=== PATIENT | female | born 1970 | race Caucasian/White ===

== ENCOUNTER 2024-08-17 14:08 | Emergency (ER) | payer SELFPAY ==
[2024-08-17 14:20] VITALS: BP 186/103
--- NOTE | 2024-08-17 16:05 | ED.GENMED ---
History of Present Illness
General
Chief Complaint: Suicidal Ideation
Source: patient
Exam Limitations: none
Time Seen by Provider: 08/17/24 15:11
Nursing documentation reviewed up to this point in time: agreed with
History of Present Illness
History of Present Illness:
Patient is a 53-year-old female with past medical history of anxiety depression suicidal ideation in the past, autism (as per mother )who presents to the ER for evaluation. She had altercation with her boss at work and reports she felt very
hopeless and upset. She however denies suicidal ideation to me. She has no plan. She does report that all of my issues'' have been related to work. She reports she gets angry sometimes and does cut herself however she did not do that today and
did not attempt to hurt herself
Phy Exam
General Physical Exam
General Presentation: no apparent distress
General age: appears stated age
General Skin: warm and dry
General Habitus: normal
General Mental: alert
General Hydration: appears well hydrated
Cardiovascular Exam
Cardiovascular Exam: regular rate/rhythm, no murmur and normal peripheral pulses
Pulmonary Exam
Pulmonary Exam: lungs clear and no respiratory distress
Neurological Exam
Neurological Exam: alert and oriented x3
Musculoskeletal Exam
Musculoskeletal Exam: full ROM
Skin Exam
Skin Exam: normal color and warm/dry
Psychiatric Exam
Psychiatric Exam: normal mood/affect
Course
Orders/Labs/Results
Orders:
Orders
08/17/24 14:28
1:1 Observation - Suicide/ Violent Behavior As Directed
08/17/24 14:30
Crisis Consult Urgent
Reason for Consult: suicidal ideation
Vital Signs
Initial and Last Documented VS:
Initial Vital Signs
Temp Pulse Resp BP Pulse Ox
98 F 118 16 186/103 100
08/17/24 14:20 08/17/24 14:20 08/17/24 14:20 08/17/24 14:20 08/17/24 14:20
Last Documented Vital Signs
Temp Pulse Resp BP Pulse Ox
98 F 80 18 138/97 98
08/17/24 14:20 08/17/24 18:44 08/17/24 18:44 08/17/24 18:44 08/17/24 18:44
MDM/Problems Addressed
Differential Diagnosis Includes:
Not limited to anxiety depression suicidal ideation
MDM/Problems Addressed:
As documented patient is a 53-year-old female with history of anxiety, autism presents to the ER for evaluation. She had an altercation with her employer at work and became very upset. She denies stating any type of suicidal threat to me here in
the ER she does not feel suicidal. She reports she just felt down and hopeless because of having to leave her job recently. She has a history of cutting but denies attempting to harm herself today. She has denied suicidal thoughts through the
entire visit. She was eval by crisis and cleared for discharge however given outpatient resources. Mother at bedside.
Chronic conditions affecting care:
autism, depression, suicidal ideation in past
*Pulse Oximetry
SaO2: 100
Oxygen Mode of Delivery: Room air
Patient hypoxic: not evaluated
*Critical Care Note
Total Time (30-74mins, 75-104mins- exclusive of procedures): Not Applicable
ED Attending Note
-
Portions of this chart may have been created with voice recognition software.� Occasional wrong word or��sound alike� substitutions may have occurred due to the inherent limitations of voice recognition software.
Discharge Plan
Departure
Patient Disposition: Home (Routine Discharge)
Date of Disposition: 08/17/24
Time of Disposition: 18:41
Patient with high blood pressure during this ER visit?: Yes
Condition: Fair
Covid-19: Not Applicable
Discharge Problem:
crisis evaluation
Instructions: BLOOD PRESSURE
Referrals:
Ace Berger MD [Family Provider, Family Practice]
Activity Restrictions/Additional Instructions:
Please follow-up with primary care physician for further evaluation of your blood pressure as it was elevated here in the ER. Please give your doctor call. You were given resources for outpatient services from crisis. Return if any worsening of
symptoms.
Interventions
Interventions:
*Risk Screen - Suicide Last Done: 08/17/24 14:20
*General Assessment Last Done: 08/17/24 14:20
*Neglect/Abuse Screening Last Done: 08/17/24 14:20
*ED- Fall Risk Assessment Last Done: 08/17/24 14:20
*ED COVID-19 Vaccine History Last Done: 08/17/24 14:20
*Nursing Disposition Last Done: 08/17/24 18:46
ED-Psychological Assessment Last Done: 08/17/24 14:20
Discharge Date and Time
Discharge Date/Time: 08/17/24 18:47
Print Language: JAPANESE
[2024-08-17 18:44] VITALS: BP 138/97
== END 2024-08-17 18:47 | disposition home or self-care (01) ==
LOC: EMR 14:08
PROVIDERS: EMERGENCY PHYSICIAN Emergency Medicine; FAMILY PHYSICIAN Family Medicine
DX: R45.851 Suicidal ideations (principal); R03.0 Elevated blood-pressure reading, without diagnosis of hypertension; F41.9 Anxiety disorder, unspecified; F84.0 Autistic disorder; Z91.52 Personal history of nonsuicidal self-harm
CPT/HCPCS: 99283